=== PATIENT | female | born 1980 | race Two or more races ===

== ENCOUNTER 2023-09-28 15:36 | Emergency (ER) | payer OTHER ==
[~2023-09-28] VITALS: Ht 175.3 cm; Wt 121.2 kg
[2023-09-28] MEDS: IPRATROPIUM BROM 0.5 MG/2.5ML INH SOL NEB ONE (16:26)
[2023-09-28] MEDS: ALBUTEROL SULF 2.5 MG/0.5ML(0.5%) NEB SOLN NEB ONE (16:26)
[2023-09-28 17:30] LABS: COVID19 ANTIGEN SOFIA FIA NEGATIVE (NEGATIVE); Rapid Influenza A Negative (Negative); Rapid Influenza B Negative (Negative)
[2023-09-28] MEDS ORDERED: PRED10TA PO (18:32)
[2023-09-28] MEDS ORDERED: ACET500T58 PO (18:32)
[2023-09-28] MEDS ORDERED: AMOX875T4 PO (18:32)
[2023-09-28] MEDS ORDERED: ALBUAER3 IN (18:32)
[2023-09-28 18:37] VITALS: BP 96/74; PULSE 111; RESP 18; TEMP 98.3; O2SAT 97
[2023-09-28] MEDS: DexAMETHasone SOD PHOS 10MG/1ML VIAL INJ IM ONE (18:39)
[2023-09-28] MEDS: cefTRIAXone SOD 1,000 MG VL IM ONE (18:52)
== END 2023-09-28 18:56 | disposition home or self-care (01) ==
LOC: ER 15:36
DX: J06.9 Acute upper respiratory infection, unspecified (principal); Z90.49 Acquired absence of other specified parts of digestive tract; Z20.822 Contact with and (suspected) exposure to COVID-19
CPT/HCPCS: 36415; 71045; 87426; 87804; 94640; 96372; 99284; J0696; J1100; J7644